=== PATIENT | female | born 1940 | race Caucasian/White ===

== ENCOUNTER 2018-06-13 06:43 | Day surgery (SDC) | payer MEDICARE ==
[~2018-06-13] VITALS: Ht 152.4 cm; Wt 62.7 kg
[2018-06-13] VITALS (18 sets, daily range): BP systolic 100–121; BP diastolic 46–71
[~2018-06-13 06:43] MED LIST: ADV50500 IH; ALBU8HFA PO; CALCIUM CHEWS PO; CHOL100046 PO; FLEC100T PO; FURO-150 PO; HYDR-4353 PO; LEVO75TA PO; METO-539 PO; MULT-1141 PO; OMEP-50 PO; PARO-62 PO; RANI150C4 PO; SPIIN IH; TRAZ-219 PO
[2018-06-13] MEDS ORDERED: normal saline 1000ml 1,000 ML IV PRN (07:10)
[2018-06-13] MEDS ORDERED: RANI-366 PO (07:32)
[2018-06-13] MEDS ORDERED: FURO-149 PO (07:32)
[2018-06-13] MEDS ORDERED: DIET75TA33 PO (07:32)
[2018-06-13] MEDS ORDERED: POTA10TA36 PO (07:32)
[2018-06-13 07:54] LABS: BASOPHILS # (AUTO) 0.1 X10'3 (0-0.2); BASOPHILS % (AUTO) 0.7 % (0-1); EOSINOPHILS # (AUTO) 0.1 X10'3 (0-0.9); EOSINOPHILS % (AUTO) 0.7 % (0-6); HEMATOCRIT 35.3 % (35.0-45.0); HEMOGLOBIN 11.8 g/dl (12.0-16.0); LYMPHOCYTES # (AUTO) 1.7 X10'3 (1.1-4.8); LYMPHOCYTES % (AUTO) 17.6 % (21-51); MEAN CORPUSCULAR HEMOGLOBIN 27.8 PG (27.0-31.0); MEAN CORPUSCULAR HGB CONC 33.6 g/dL (33.0-36.5); MEAN CORPUSCULAR VOLUME 82.8 FL (78-98); MEAN PLATELET VOLUME 6.4 FL (7.4-10.4); MONOCYTES # (AUTO) 0.6 X10'3 (0-0.9); MONOCYTES % (AUTO) 5.9 % (2-12); NEUTROPHILS # (AUTO) 7.4 X10'3 (1.8-7.7); NEUTROPHILS % (AUTO) 75.1 % (42-75); PLATELET COUNT 555 X10'3 (140-440); RED BLOOD COUNT 4.26 X10'6 (4.20-5.60); RED CELL DISTRIBUTION WIDTH 16.3 % (11.5-14.5); WHITE BLOOD COUNT 9.8 X10'3 (4.5-11.0)
[2018-06-13 08:03] LABS: ALBUMIN 3.3 G/DL (3.4-5.0); ANION GAP 7 (8-16); BLOOD UREA NITROGEN 14 MG/DL (7-18); BUN/CREATININE RATIO 14.4 (6.6-38.0); CALCIUM 9.6 MG/DL (8.5-10.1); CHLORIDE 101 MMOL/L (99-107); CREATININE 0.97 MG/DL (0.40-0.90); GLUCOSE 91 MG/DL (70-104); POTASSIUM 3.1 MMOL/L (3.5-5.1); SODIUM 140 MMOL/L (135-145); TOTAL CARBON DIOXIDE 31.6 MMOL/L (24-32); eGFR 56 ML/MIN
[2018-06-13] MEDS ORDERED: WARF6TAB PO (08:55)
[2018-06-13] MEDS ORDERED: midazolam 2 mg/2 ml injection IV PRN (08:55)
[2018-06-13] MEDS ORDERED: fentaNYL/PF 50MCG/1 ML 2ML syringe IV PRN (08:55)
[2018-06-13] MEDS ORDERED: LIDOcaine 1%/PF 5ML 10 MG/ML VIAL ONE (09:00)
[2018-06-13] MEDS ORDERED: fentaNYL/PF 50MCG/1 ML 2ML syringe ONE (09:05)
[2018-06-13] MEDS ORDERED: midazolam 2 mg/2 ml injection ONE (09:05)
== END 2018-06-13 13:12 | disposition home or self-care (01) ==
LOC: SSTAY O 06:43
PROVIDERS: ATTEND Radiology Diagnostic Radiology
DX: R91.8 Other nonspecific abnormal finding of lung field (principal); J44.9 Chronic obstructive pulmonary disease, unspecified; E03.9 Hypothyroidism, unspecified; I25.10 Atherosclerotic heart disease of native coronary artery without angina pectoris; I10 Essential (primary) hypertension; K21.9 Gastro-esophageal reflux disease without esophagitis; Z87.891 Personal history of nicotine dependence; I48.91 Unspecified atrial fibrillation; Z98.890 Other specified postprocedural states; Z96.652 Presence of left artificial knee joint; Z79.899 Other long term (current) drug therapy
CPT/HCPCS: 32405; 36415; 71045; 77012; 80048; 85025; 85610; 88341; 88342; 99152; 99153; J2001; J2250; J3010; J7030; 88305

== ENCOUNTER 2018-09-11 08:27 | Inpatient (IN) | payer MEDICARE ==
[2018-08-31 11:41] LABS: CLARITY,URINE CLEAR (Clear); COLOR,URINE YELLOW (Yellow); GLUCOSE, URINE NEGATIVE (Neg); KETONES,URINE NEGATIVE (Neg); LEUKOCYTE ESTERASE ,URINE NEGATIVE (Neg); NITRITES, URINE NEGATIVE (Neg); OCCULT BLOOD,URINE TRACE-INTACT (Neg); PROTEIN,URINE NEGATIVE (Neg); UROBILINOGEN,URINE 0.2 E.U/dL (0.2-1.0)
[2018-08-31 11:43] LABS: BASOPHILS % (AUTO) 0.3 % (0-1); EOSINOPHILS # (AUTO) 0.1 X10'3 (0-0.9); EOSINOPHILS % (AUTO) 1.5 % (0-6); LYMPHOCYTES # (AUTO) 1.3 X10'3 (1.1-4.8); LYMPHOCYTES % (AUTO) 25.6 % (21-51); MEAN CORPUSCULAR HEMOGLOBIN 28.7 PG (27.0-31.0); MEAN CORPUSCULAR HGB CONC 33.2 g/dL (33.0-36.5); MEAN CORPUSCULAR VOLUME 86.4 FL (78-98); MEAN PLATELET VOLUME 7.4 FL (7.4-10.4); MONOCYTES # (AUTO) 0.4 X10'3 (0-0.9); NEUTROPHILS # (AUTO) 3.4 X10'3 (1.8-7.7); NEUTROPHILS % (AUTO) 64.6 % (42-75); PRE OP HEMATOCRIT 42.3 % (35.0-45.0); PRE OP HEMOGLOBIN 14.1 g/dL (12.0-16.0); PRE OP PLATELET COUNT 216 X10'3 (140-440); RED CELL DISTRIBUTION WIDTH 15.5 % (11.5-14.5)
[2018-08-31 11:45] LABS: UA COLLECTION TYPE CLN CATCH MIDSTREAM
[2018-08-31 11:47] LABS: BACTERIA,URINE NONE SEEN /HPF (Neg); SQUAMOUS EPITHELIAL CELL,UR FEW /LPF (FEW); WBC,URINE 0-4 /HPF (0-4)
[2018-08-31 11:49] LABS: PRE OP INR 1.1 INR; PRE OP PROTIME 11.3 SECONDS (9.0-12.0)
[2018-08-31 11:59] LABS: ALBUMIN 3.8 G/DL (3.4-5.0); ALKALINE PHOSPHATASE 88 IU/L (46-116); BLOOD UREA NITROGEN 23 MG/DL (7-18); BUN/CREATININE RATIO 23.5 (6.6-38.0); CALCIUM 9.1 MG/DL (8.5-10.1); CHLORIDE 100 MMOL/L (99-107); CREATININE 0.98 MG/DL (0.40-0.90); PRE OP ALT 22 U/L (30-65); PRE OP ANION GAP 7 (8-16); PRE OP AST 26 U/L (10-37); PRE OP BILIRUB, TOTAL 0.5 MG/DL (0.0-1.0); PRE OP GLUCOSE 95 MG/DL (70-104); PRE OP SODIUM 137 MMOL/L (135-145); TOTAL CARBON DIOXIDE 30.4 MMOL/L (24-32); TOTAL PROTEIN 7.8 G/DL (6.4-8.2); eGFR 55 ML/MIN
[2018-08-31 12:01] LABS: PRE OP POTASSIUM 3.3 MMOL/L (3.4-5.1)
[~2018-09-11] VITALS: Ht 152.4 cm; Wt 63.5 kg
[2018-09-11] VITALS (20 sets, daily range): BP systolic 77–127; BP diastolic 41–79
[~2018-09-11 08:27] MED LIST changes: -CALCIUM CHEWS PO; -CHOL100046 PO; -HYDR-4353 PO; -MULT-1141 PO; -PARO-62 PO; +POTA10TA36 PO; +RANI-366 PO; -RANI150C4 PO; -TRAZ-219 PO; +WARF6TAB PO
[2018-09-11] MEDS ORDERED: famotidine 20mg tablet PO ONE (08:30)
[2018-09-11] MEDS ORDERED: ringers solution, lacted 1,000 ML IV SCH ×3 (08:30→11:29)
[2018-09-11] MEDS ORDERED: DOCUMENT DATE & TIME OF BETA-BLOCKER PO ONE (08:30)
[2018-09-11] MEDS ORDERED: VANCOMYCIN INJ 1000 MG in NORMAL SALINE 250ml IV.SOLN IV ONE (08:30)
[2018-09-11] MEDS ORDERED: acetaminophen 325mg tablet PO ONE (08:30)
[2018-09-11] MEDS ORDERED: cefazolin/dext.iso 2gm/100 ML IV ONE (08:30)
[2018-09-11] MEDS ORDERED: gabapentin 300mg capsule PO ONE (08:30)
[2018-09-11] MEDS ORDERED: morphine 4 MG/ML inj SYRINge IV PRN ×4 (09:00→11:30)
[2018-09-11] MEDS ORDERED: proCHLORperazine 10 MG/2 ml inj IV PRN (09:00)
[2018-09-11] MEDS ORDERED: ondansetron/PF 4mg/2ml inj IV PRN ×4 (09:00→12:40)
[2018-09-11] MEDS ORDERED: meperidine/PF 25mg/ml syringe IV PRN ×3 (09:00)
[2018-09-11] MEDS ORDERED: ROPIVAcaine 0.5% (5mg/ml) 30ml vial ONE ×2 (09:41→10:06)
[2018-09-11] MEDS ORDERED: tetracaine 1% (10mg/ml) pres. free inj. ONE (09:41)
[2018-09-11] MEDS ORDERED: MIDAZolam 1mg/ml 10ml vial ONE (10:01)
[2018-09-11] MEDS ORDERED: morphine /PF 1mg/ml 10ml inj. ONE (10:02)
[2018-09-11 10:41] LABS: PRE OP INR 1.1 INR; PRE OP PROTIME 10.9 SECONDS (9.0-12.0)
[2018-09-11 10:44] LABS: ALBUMIN 3.5 G/DL (3.4-5.0); ALBUMIN/GLOBULIN RATIO 0.9 (1.1-1.5); ALKALINE PHOSPHATASE 75 IU/L (46-116); BLOOD UREA NITROGEN 21 MG/DL (7-18); BUN/CREATININE RATIO 21.2 (6.6-38.0); CHLORIDE 103 MMOL/L (99-107); CREATININE 0.99 MG/DL (0.40-0.90); PRE OP ALT 27 U/L (30-65); PRE OP ANION GAP 6 (8-16); PRE OP AST 21 U/L (10-37); PRE OP BILIRUB, TOTAL 0.4 MG/DL (0.0-1.0); PRE OP GLUCOSE 94 MG/DL (70-104); PRE OP POTASSIUM 3.8 MMOL/L (3.4-5.1); PRE OP SODIUM 140 MMOL/L (135-145); TOTAL CARBON DIOXIDE 31.4 MMOL/L (24-32); TOTAL PROTEIN 7.3 G/DL (6.4-8.2); eGFR 55 ML/MIN
[2018-09-11] MEDS ORDERED: labetalol 20mg/4ml (5mg/ml) syringe IV PRN (11:30)
[2018-09-11] MEDS ORDERED: fentaNYL/PF 50MCG/1 ML 2ML syringe IV PRN ×2 (11:30)
[2018-09-11] MEDS ORDERED: hydrALAZINE 20mg/ml inj. IV PRN (11:30)
[2018-09-11] MEDS ORDERED: diphenhydrAMINE 50 mg/ml inj IV PRN (11:35)
[2018-09-11] MEDS ORDERED: ceFAZolin 1000mg inj ONE (11:53)
[2018-09-11] MEDS ORDERED: albuterol 2.5 MG/3 ML nebule NEB PRN (12:35)
[2018-09-11] MEDS ORDERED: acetaminophen 325mg tablet PO PRN (12:40)
[2018-09-11] MEDS ORDERED: bisacodyl 10mg suppository rectal RC PRN (12:40)
[2018-09-11] MEDS ORDERED: diphenhydrAMINE 25mg capsule PO PRN ×2 (12:40)
[2018-09-11] MEDS ORDERED: magnesium hydroxide 30ml (MOM) UD suspension PO PRN (12:40)
[2018-09-11] MEDS ORDERED: HYDROmorphone inj. 0.5 MG/0.5 ML DISP.SYRIN IV PRN (12:40)
--- NOTE | 2018-09-11 13:00 | NUR ---
Received from OR via BED, accompanied by Anesthesiologist DR TOUSSAINT and report given by Anesthesiologist. PT DROWSY, DENIES PAIN, PT W/SAB UNABLE TO MOVE BILAT LE'S, RIGHT LEG W/DRSG, LEG WRAP, LEG BRACE, ICE PACK, CDI, DERMATOME LEVEL T-12. Addendum: 09/11/18 at 1335 by Ela Christopher RN Amended: Links added.
--- NOTE | 2018-09-11 14:30 | NUR ---
Report called to receiving nurse. Transferred IN STABLE CONDITION via BED, GLASSES ONLY Belongings, PTS HAS PTS BELONGINGS, ATTACHED PT TO VS MACHINE, BLL, CALL LIGHT GIVEN, SIDE RAILS UP X 2, PTS AT BEDSIDE, RECEIVING RN NOTIFIED OF PTS ARRIVAL. Special Issues communicated to receiving nurse. YES. Addendum: 09/11/18 at 1505 by Ela Christopher RN Amended: Links added.
[2018-09-11] MEDS ORDERED: ipratropium 0.5 MG/2.5ML nebule NEB SCH (15:00)
[2018-09-11] MEDS ORDERED: warfarin 10mg tablet PO ONE (15:00)
[2018-09-11] MEDS ORDERED: albuterol 2.5 MG/3 ML nebule NEB SCH (15:00)
[2018-09-11] MEDS: ipratropium/albuterol 3ml nebule NEB SCH ×2 (15:10→20:02)
[2018-09-11] MEDS: ceFAZolin 1GM/D5W- ADD-VANTAGE 50 ML IV SCH (15:35)
[2018-09-11] MEDS: gabapentin 300mg capsule PO SCH ×2 (15:36→22:01)
[2018-09-11] MEDS: potassium cl 20mEq in 1/2 NS 1,000 ML IV SCH ×2 (15:37→20:50)
--- NOTE | 2018-09-11 18:10 | NUR ---
BP's low, see postop vitals. 250 ml normal saline bolus started. Pt asymptomatic, monitoring
[2018-09-11] MEDS ORDERED: non-formulary drug (Ranitidine Hcl (Zantac) 150 MG) PO SCH (20:00)
[2018-09-11] MEDS ORDERED: vancomycin/NS 1 GM ADD-VANTAGE 250 ML IV SCH (20:00)
[2018-09-11] MEDS ORDERED: SALMETEROL IH SCH (20:00)
[2018-09-11] MEDS: furosemide 40mg tablet PO SCH (20:00)
[2018-09-11] MEDS ORDERED: FLUTICASONE IH SCH (20:00)
[2018-09-11] MEDS: budesonide 0.5mg/2ml UD nebule IH SCH (20:02)
[2018-09-11] MEDS: flecainide 50mg tablet PO SCH (20:43)
[2018-09-11] MEDS: ascorbic acid 500mg tablet PO SCH (20:43)
[2018-09-11] MEDS: metoprolol succinate 25mg (24-HOUR) SR. Tablet PO SCH (21:00)
[2018-09-11] MEDS: sennosides 8.6mg tablet PO SCH (21:00)
[2018-09-12] VITALS (11 sets, daily range): BP systolic 81–127; BP diastolic 34–56
[2018-09-12] MEDS: ceFAZolin 1GM/D5W- ADD-VANTAGE 50 ML IV SCH (00:58)
[2018-09-12] MEDS: ipratropium/albuterol 3ml nebule NEB SCH ×4 (03:00→19:27)
[2018-09-12] MEDS: potassium cl 20mEq in 1/2 NS 1,000 ML IV SCH ×2 (04:37→12:00)
[2018-09-12] MEDS: oxyCODONE/APAP 10/325mg tablet PO PRN ×3 (05:41→17:14)
[2018-09-12 06:10] LABS: BASOPHILS % (AUTO) 0.1 % (0-1); EOSINOPHILS % (AUTO) 0.1 % (0-6); HEMATOCRIT 31.9 % (35.0-45.0); HEMOGLOBIN 10.7 g/dl (12.0-16.0); LYMPHOCYTES % (AUTO) 15.9 % (21-51); MEAN CORPUSCULAR HGB CONC 33.6 g/dL (33.0-36.5); MEAN CORPUSCULAR VOLUME 86.5 FL (78-98); MEAN PLATELET VOLUME 7.3 FL (7.4-10.4); MONOCYTES # (AUTO) 0.4 X10'3 (0-0.9); MONOCYTES % (AUTO) 6.2 % (2-12); NEUTROPHILS # (AUTO) 5.1 X10'3 (1.8-7.7); NEUTROPHILS % (AUTO) 77.7 % (42-75); PLATELET COUNT 180 X10'3 (140-440); RED BLOOD COUNT 3.68 X10'6 (4.20-5.60); RED CELL DISTRIBUTION WIDTH 14.9 % (11.5-14.5); WHITE BLOOD COUNT 6.5 X10'3 (4.5-11.0)
[2018-09-12 06:24] LABS: ALANINE AMINOTRANSFERASE 20 U/L (12-78); ALBUMIN 2.7 G/DL (3.4-5.0); ALBUMIN/GLOBULIN RATIO 0.8 (1.1-1.5); ALKALINE PHOSPHATASE 60 IU/L (46-116); ANION GAP 6 (8-16); ASPARTATE AMINO TRANSFERASE 21 U/L (10-37); BILIRUBIN,TOTAL 0.2 MG/DL (0.1-1.0); BLOOD UREA NITROGEN 10 MG/DL (7-18); BUN/CREATININE RATIO 10.5 (6.6-38.0); CALCIUM 8.4 MG/DL (8.5-10.1); CHLORIDE 105 MMOL/L (99-107); CREATININE 0.95 MG/DL (0.40-0.90); GLUCOSE 124 MG/DL (70-104); POTASSIUM 4.1 MMOL/L (3.5-5.1); SODIUM 139 MMOL/L (135-145); TOTAL CARBON DIOXIDE 28.4 MMOL/L (24-32); eGFR 57 ML/MIN
[2018-09-12] MEDS: budesonide 0.5mg/2ml UD nebule IH SCH ×2 (07:24→19:27)
[2018-09-12] MEDS: furosemide 40mg tablet PO SCH ×2 (08:00→20:23)
[2018-09-12] MEDS: potassium chloride 10mEq ER tablet PO SCH (08:01)
[2018-09-12] MEDS: gabapentin 300mg capsule PO SCH ×3 (08:02→20:20)
[2018-09-12] MEDS: levoTHYROXINE 75mcg tablet PO SCH (08:02)
[2018-09-12] MEDS: pantoprazole 40mg Tablet.DR PO SCH (08:02)
[2018-09-12] MEDS: ascorbic acid 500mg tablet PO SCH ×2 (08:03→20:20)
[2018-09-12] MEDS: multivitamins, therapeutics tablet PO SCH (08:03)
[2018-09-12] MEDS: flecainide 50mg tablet PO SCH ×2 (08:03→20:20)
[2018-09-12] MEDS ORDERED: warfarin 10mg tablet PO ONE (10:00)
--- NOTE | 2018-09-12 15:17 | NUR ---
Joint replacement consult: Pt seen by BENEDICTO for written/verbal high protein ed. RD reviewed high protein needs for wound healing, immune strength, high protein foods, and protein supplementation options. RD contact information provided in case of further questions. Pt agrees to ensure pudding TIDWM; dietary notified. Addendum: 09/12/18 at [address] Amended: Links added.
--- NOTE | 2018-09-12 18:00 | NUR ---
Received report from Vianney JOSEPH, assumed care of patient with Rosana JOSEPH.
--- NOTE | 2018-09-12 18:07 | NUR ---
Problems reprioritized. Patient report given, questions answered & plan of care reviewed with JAKE Wayne.
[2018-09-12] MEDS: sennosides 8.6mg tablet PO SCH (20:20)
[2018-09-12] MEDS: metoprolol succinate 25mg (24-HOUR) SR. Tablet PO SCH (20:23)
[2018-09-13] MEDS: oxyCODONE/APAP 10/325mg tablet PO PRN ×3 (02:08→12:49)
[2018-09-13] MEDS: ipratropium/albuterol 3ml nebule NEB SCH ×3 (02:47→14:45)
--- NOTE | 2018-09-13 05:44 | NUR ---
In agreement with all charting and medication administration reviewed for this shift completed by Kristy JOSEPH.
[2018-09-13 06:00] VITALS: BP 131/58
--- NOTE | 2018-09-13 06:00 | NUR ---
Patient in room ORTHO 4016. I have received report from and had the opportunity to ask questions and assume patient care, JAKE Richards
[2018-09-13 06:23] LABS: BASOPHILS % (AUTO) 0.3 % (0-1); EOSINOPHILS # (AUTO) 0.1 X10'3 (0-0.9); EOSINOPHILS % (AUTO) 0.9 % (0-6); HEMATOCRIT 33.1 % (35.0-45.0); HEMOGLOBIN 11.1 g/dl (12.0-16.0); LYMPHOCYTES # (AUTO) 1.3 X10'3 (1.1-4.8); LYMPHOCYTES % (AUTO) 18.6 % (21-51); MEAN CORPUSCULAR HEMOGLOBIN 28.8 PG (27.0-31.0); MEAN CORPUSCULAR HGB CONC 33.7 g/dL (33.0-36.5); MEAN CORPUSCULAR VOLUME 85.5 FL (78-98); MEAN PLATELET VOLUME 7.9 FL (7.4-10.4); MONOCYTES # (AUTO) 0.5 X10'3 (0-0.9); MONOCYTES % (AUTO) 6.8 % (2-12); NEUTROPHILS # (AUTO) 5.2 X10'3 (1.8-7.7); NEUTROPHILS % (AUTO) 73.4 % (42-75); PLATELET COUNT 243 X10'3 (140-440); RED BLOOD COUNT 3.87 X10'6 (4.20-5.60); RED CELL DISTRIBUTION WIDTH 14.9 % (11.5-14.5)
--- NOTE | 2018-09-13 06:28 | NUR ---
Gave report to Sonia JOSEPH with Rosana JOSEPH.
[2018-09-13 06:40] LABS: ALANINE AMINOTRANSFERASE 19 U/L (12-78); ALBUMIN 2.8 G/DL (3.4-5.0); ALBUMIN/GLOBULIN RATIO 0.8 (1.1-1.5); ALKALINE PHOSPHATASE 66 IU/L (46-116); ANION GAP 7 (8-16); ASPARTATE AMINO TRANSFERASE 19 U/L (10-37); BILIRUBIN,TOTAL 0.3 MG/DL (0.1-1.0); BLOOD UREA NITROGEN 8 MG/DL (7-18); BUN/CREATININE RATIO 12.3 (6.6-38.0); CALCIUM 8.7 MG/DL (8.5-10.1); CHLORIDE 103 MMOL/L (99-107); CREATININE 0.65 MG/DL (0.40-0.90); GLUCOSE 98 MG/DL (70-104); POTASSIUM 4.1 MMOL/L (3.5-5.1); SODIUM 138 MMOL/L (135-145); TOTAL CARBON DIOXIDE 27.6 MMOL/L (24-32); TOTAL PROTEIN 6.4 G/DL (6.4-8.2); eGFR 89 ML/MIN
[2018-09-13] MEDS: budesonide 0.5mg/2ml UD nebule IH SCH (07:57)
[2018-09-13] MEDS: furosemide 40mg tablet PO SCH (08:00)
[2018-09-13] MEDS: pantoprazole 40mg Tablet.DR PO SCH (09:01)
[2018-09-13] MEDS: levoTHYROXINE 75mcg tablet PO SCH (09:01)
[2018-09-13] MEDS: gabapentin 300mg capsule PO SCH ×2 (09:02→12:49)
[2018-09-13] MEDS: potassium chloride 10mEq ER tablet PO SCH (09:02)
[2018-09-13] MEDS: flecainide 50mg tablet PO SCH (09:02)
[2018-09-13] MEDS: multivitamins, therapeutics tablet PO SCH (09:03)
[2018-09-13] MEDS: ascorbic acid 500mg tablet PO SCH (09:03)
[2018-09-13 10:00] VITALS: BP 131/69
[2018-09-13] MEDS ORDERED: warfarin 5mg tablet PO ONE (10:00)
--- NOTE | 2018-09-13 10:50 | NUR ---
coumadin 10mg tab will not scan. pt order is 5 mg INR 1.7. Cut tab in half and administered 5mg coumadin tab to pt
[2018-09-13] MEDS ORDERED: acetaminophen 325mg tablet PO PRN (12:40)
--- NOTE | 2018-09-13 15:10 | NUR ---
DISCHARGE: pt A/O x4, able to make needs known. All necessary DC documents signed and copied sent home w/pt. pt given two powder packs, all personal belongings given to pt. Pt denies pain, CP, SOB, resp distress, N/V at DC. Pt escorted ЕКАТЕРИНА in WC by [facility] & pt spouse. Pt transferred safely into personal vehicle.
== END 2018-09-13 14:56 | disposition home health service (06) | DRG 470 ==
LOC: PAS IN 08:27 → EDSTATUS 10:30 → ORTHO 4S 14:45
PROVIDERS: ADMIT Specialist; ATTEND Specialist
PROC: 3E0T3BZ Introduction of Anesthetic Agent into Peripheral Nerves and Plexi, Percutaneous Approach (ICD-10-PCS; 2018-09-11)
PROC: 0SRC0J9 Replacement of Right Knee Joint with Synthetic Substitute, Cemented, Open Approach (ICD-10-PCS; principal; 2018-09-11 10:46)
DX: M17.11 Unilateral primary osteoarthritis, right knee (principal); D62 Acute posthemorrhagic anemia; I89.0 Lymphedema, not elsewhere classified; I48.2 Chronic atrial fibrillation; Z96.652 Presence of left artificial knee joint; E03.9 Hypothyroidism, unspecified; G47.30 Sleep apnea, unspecified; J45.909 Unspecified asthma, uncomplicated; K21.9 Gastro-esophageal reflux disease without esophagitis; M21.161 Varus deformity, not elsewhere classified, right knee; Z86.711 Personal history of pulmonary embolism; Z79.01 Long term (current) use of anticoagulants; Z86.718 Personal history of other venous thrombosis and embolism; Z87.891 Personal history of nicotine dependence; Z79.82 Long term (current) use of aspirin; Z79.899 Other long term (current) drug therapy
CPT/HCPCS: 36415; 73560; 80053; 81001; 82948; 84443; 85025; 85610; 85730; 87081; 94640; 94760; 97110; 97116; 97161; 97530; A4215; A4618; A6449; A6454; A7000; C1713; C1758; C1776; G0378; J0690; J2250; J2270; J2795; J3370; J3480; J7120; J7626